=== PATIENT | female | born 1975 | race Caucasian/White ===

== ENCOUNTER 2017-11-26 20:06 | Emergency (ER) | payer OTHER ==
[~2017-11-26] VITALS: Ht 157.5 cm; Wt 83.2 kg
[~2017-11-26 20:06] MED LIST: ENDOCET 5-3251 EACH PO; IBUPROFEN800 MG PO; Motrin PO; PRENATAL TABLE1 EAC3 PO
[2017-11-27 00:08] VITALS: BP 150/96
== END 2017-11-27 00:08 | disposition home or self-care (01) ==
LOC: EME 20:06
DX: R07.0 Pain in throat (principal); R09.89 Other specified symptoms and signs involving the circulatory and respiratory systems
CPT/HCPCS: 70360; 70490; 99281; 99284